=== PATIENT | male | born 1985 | race Two or more races ===

== ENCOUNTER 2023-02-05 20:58 | Observation (INO) ==
[2023-02-06] MEDS ORDERED: Magnesium Sulfate 2 gm BAG 2 GM/50 ML BAG IVPB ONE (00:56)
[2023-02-06] MEDS ORDERED: Albuterol/Ipratropium NEB.SOL (2.5/0.5 MG) 3 ML NEB.SOLN INH ONE (00:56)
[2023-02-06] MEDS ORDERED: Dexamethasone IV 4 MG/ML VIAL 1 ml VIAL IV SLOW PU ONE (00:56)
[2023-02-06] MEDS ORDERED: Albuterol 0.5% CONC CONTINUOUS NEB.SOL 5 mg/ml 20 ml BOT INH SCH (04:00)
[2023-02-06] MEDS ORDERED: Albuterol 2.5mg/3 ml (0.083%) NEB.SOLN INH SCH (05:00)
[2023-02-06] MEDS ORDERED: Terbutaline INJ 1 MG/ML 1 ml VIAL SUBCUT ONE (06:54)
[2023-02-06] MEDS ORDERED: Albuterol 2.5mg/3 ml (0.083%) NEB.SOLN INH ONE (06:58)
[2023-02-06 07:46] LABS: ABS Lymphocytes 0.4 10^3/uL (1.0-4.8); ABS Monocytes 0.1 10^3/uL (0.0-1.1); ABS Neutrophils 11.7 10^3/uL (1.5-7.6); ABS Nucleated RBC 0.01 10^3/ul; Hematocrit 44.7 % (38-53); Hemoglobin 15.6 g/dL (13.2-16.3); Lymphocyte % 3.1 %; Mean Corpuscular Hemoglobin 27.5 pg (27-33); Mean Corpuscular Hgb Conc 34.8 g/dL (31-36); Mean Corpuscular Volume 78.9 fL (80-97); Mean Platelet Volume 7.9 fL (7.5-11.2); Platelet Count 178 10^3/uL (150-450); Red Blood Count 5.66 10^6/uL (4.06-5.63); Red Cell Distribution Width 13.8 % (12-17); White Blood Count 12.2 10^3/uL (3.6-10.2)
[2023-02-06 08:14] LABS: High Sens Troponin Baseline < 3 pg/mL (<20)
[2023-02-06 08:21] LABS: ALT 26 U/L (7-52); AST 17 U/L (13-39); Albumin 4.4 g/dL (3.2-5.2); Albumin/Globulin Ratio 1.4 (1-3); Alkaline Phosphatase 70 U/L (35-149); Anion Gap 13 mmol/L (2-16); Blood Urea Nitrogen 11 mg/dL (6-24); CO2 Carbon Dioxide 22 mmol/L (22-32); Calcium 8.9 mg/dL (8.6-10.3); Chloride 103 mmol/L (101-111); Creatinine, Serum 1.07 mg/dL (0.67-1.17); Globulin 3.1 g/dL (2-4); Glucose 176 mg/dL (70-100); Magnesium 2.1 mg/dL (1.9-2.7); Sodium 138 mmol/L (135-145); Total Bilirubin 0.6 mg/dL (0.2-1.0); Total Protein 7.5 g/dL (6.4-8.9); eGFR CKD-EPI 92.8 (>60)
[2023-02-06] MEDS ORDERED: Senna TAB 8.6 mg TAB PO PRN (08:30)
[2023-02-06] MEDS ORDERED: Polyethylene Glycol 3350 17 GM PACKET PO PRN (08:30)
[2023-02-06] MEDS ORDERED: Levalbuterol 0.63MG/3ML NEB UNIT OF USE INH PRN (08:34)
[2023-02-06 09:02] LABS: High Sensitivity Troponin 1 Hr < 3 pg/mL (<20)
[2023-02-06] MEDS: Albuterol/Ipratropium NEB.SOL (2.5/0.5 MG) 3 ML NEB.SOLN INH SCH ×3 (11:33→19:20)
[2023-02-06] MEDS: Calcium Carb (TUMS) 500 mg CHEW TAB PO PRN (15:47)
[2023-02-07] MEDS: Calcium Carb (TUMS) 500 mg CHEW TAB PO PRN (04:34)
[2023-02-07] MEDS ORDERED: Albuterol/Ipratropium NEB.SOL (2.5/0.5 MG) 3 ML NEB.SOLN INH PRN (07:57)
[2023-02-07 08:20] LABS: ABS Eosinophils 0.2 10^3/uL (0.0-0.5); ABS Lymphocytes 1.8 10^3/uL (1.0-4.8); ABS Monocytes 0.9 10^3/uL (0.0-1.1); ABS Neutrophils 6.5 10^3/uL (1.5-7.6); ABS Nucleated RBC 0.09 10^3/ul; Eosinophil % 1.8 %; Hematocrit 45.3 % (38-53); Hemoglobin 16.2 g/dL (13.2-16.3); Lymphocyte % 19.4 %; Mean Corpuscular Hemoglobin 27.9 pg (27-33); Mean Corpuscular Hgb Conc 35.7 g/dL (31-36); Mean Corpuscular Volume 78.2 fL (80-97); Mean Platelet Volume 7.8 fL (7.5-11.2); Nucleated Red Blood Cells % 0.9 %/100WBC (0.0-0.8); Platelet Count 187 10^3/uL (150-450); Red Cell Distribution Width 14.2 % (12-17); White Blood Count 9.4 10^3/uL (3.6-10.2)
[2023-02-07] MEDS: Albuterol/Ipratropium NEB.SOL (2.5/0.5 MG) 3 ML NEB.SOLN INH SCH (08:40)
[2023-02-07] MEDS ORDERED: Mometasone/Formoter 100/5 MDI INH SCH (11:00)
[2023-02-07 14:11] VITALS: BP 131/85
== END 2023-02-07 14:54 | disposition home or self-care (01) ==
LOC: ED 20:58 → EDHOLD 20:58 → MED 02-06 17:45
PROVIDERS: ADMIT Internal Medicine; ATTEND Internal Medicine